=== PATIENT | male | born 1965 | race Caucasian/White ===

== ENCOUNTER → 2020-07-21 01:44 | Outpatient (CLI) | payer OTHER, SELFPAY ==
[2020-07-21 20:13] LABS: SARS-CoV-2 RNA PCR Negative
== END ==
PROVIDERS: PCP Internal Medicine; Visit Provider Internal Medicine Gastroenterology
DX: Z01.812 Encounter for preprocedural laboratory examination (principal); Z20.822 Contact with and (suspected) exposure to COVID-19
CPT/HCPCS: C9803; U0003; U0005

== ENCOUNTER 2020-07-24 01:28 | Day surgery (SDC) | payer OTHER, SELFPAY ==
[2020-07-10 13:32] VITALS: BMI 31.6
--- NOTE | 2020-07-23 09:55 | WPDANESEPPF ---
Anes - Initial Pre Proc Eval Procedure: Operation Date: 07/24/20 08:00 Proposed Procedures p Screening Colonoscopy - Jim Loera MD Date/Time: 07/23/20 09:55 Surgeon: Jim Loera MD Pre Op Diagnosis: neoplasm screening Patient Data Age: 54 Gender: M Height: 1.91 m Weight: 115 kg Allergies Allergy/AdvReac Type Severity Reaction Status Date / Time No Known Allergies Allergy Unknown Verified 07/24/20 06:48 Home Medications Medication Instructions Recorded Confirmed Type melatonin 5 mg tablet 5 mg PO ONCE PRN tablet 06/13/19 07/10/20 History hydrocodone 5 mg-acetaminophen 325 1 tablet PO Q6H PRN #28 tablet 06/26/19 07/10/20 Rx mg tablet fluticasone propionate 50 2 spray NASAL DAILY PRN #15.8 ml 12/11/19 07/10/20 Rx mcg/actuation nasal spray,suspension sildenafil (pulm.hypertension) 20 40 mg PO .COMPLEX #30 tablet 02/19/20 07/10/20 Rx mg tablet sod picosulf 10 mg-magnes 3.5 160 ml PO BID #160 ml 06/30/20 07/10/20 Rx gram-citric 12 gram/160 mL oral solution diclofenac sodium 75 mg PO DAILY 07/10/20 07/10/20 History Patient hx anesthesia problems: none Family hx anesthesia problems: none PMFSH Past Medical History Medical History (Updated 07/23/20 @ 09:59 by Alexander Nguyen MD) BMI 31.0-31.9,adult DVT (deep venous thrombosis) Other hyperlipidemia Family History Family History Mother Patient's mother is in good health Father Patient's father is in good health Social History Social History Smoking status: Never smoker Second hand tobacco smoke exposure: No Smoking end date: 04/25/88 Alcohol intake: current Drinks per week: 4 Alcohol use details: beer, vodka Substance use: current Substance use type: marijuana Living arrangements: with family Gender identity (if verbalized by the patient): Male Spiritual care concerns: No Anes - Eval Final PreProcedure Day of Procedure 07/23/20 09:55 Patient weight: obese Heart: regular rate and rhythm Lungs: clear to auscultation and normal air movement Airway: Mallampati scale class II Neurological: alert and oriented Last oral intake: >/= 8 hours ASA classification: II Emergent: no Anesthetic plan: proceed Anesthesia type and monitoring: general GIVS Informed Consent: The patient's anesthetic plan and its attendant risks and benefits were discussed with the patient/family/POA. Questions were solicited and answers provided to the satisfaction of the patient/family/POA.
[2020-07-24 06:50] VITALS: BP 132/93; PULSE 78; RESP 18; TEMP 35.9; O2SAT 100; BMI 30.5
[2020-07-24] MEDS: LACTATED RINGERS 1,000 ML 150 ML IV CONT (07:09)
--- NOTE | 2020-07-24 07:25 | PM.HPGS ---
History of Present Illness History of Present Illness Consent: Risks, benefits, and alternatives have been discussed and questions answered. Patient agrees to proceed with procedure. Chief complaint: neoplasm screening Narrative: Mehrdad England is a 54 year old male referred for colon cancer screen Review of Systems Review of Systems: All systems reviewed & are unremarkable except as noted in HPI and below PMFSH Past Medical History Medical History BMI 31.0-31.9,adult DVT (deep venous thrombosis) Other hyperlipidemia Family History Family History Mother Patient's mother is in good health Father Patient's father is in good health Social History Social History Smoking status: Never smoker Second hand tobacco smoke exposure: No Smoking end date: 04/25/88 Alcohol intake: current Drinks per week: 4 Alcohol use details: beer, vodka Substance use: current Substance use type: marijuana Living arrangements: with family Gender identity (if verbalized by the patient): Male Spiritual care concerns: No Meds Home Medications and Allergies Home Medications Medication Instructions Recorded Confirmed Type melatonin 5 mg tablet 5 mg PO ONCE PRN tablet 06/13/19 07/10/20 History hydrocodone 5 mg-acetaminophen 325 1 tablet PO Q6H PRN #28 tablet 06/26/19 07/10/20 Rx mg tablet fluticasone propionate 50 2 spray NASAL DAILY PRN #15.8 ml 12/11/19 07/10/20 Rx mcg/actuation nasal spray,suspension sildenafil (pulm.hypertension) 20 40 mg PO .COMPLEX #30 tablet 02/19/20 07/10/20 Rx mg tablet sod picosulf 10 mg-magnes 3.5 160 ml PO BID #160 ml 06/30/20 07/10/20 Rx gram-citric 12 gram/160 mL oral solution diclofenac sodium 75 mg PO DAILY 07/10/20 07/10/20 History Allergies Allergy/AdvReac Type Severity Reaction Status Date / Time No Known Allergies Allergy Unknown Verified 07/24/20 06:48 Vital Signs Vital Signs - 24 hr 07/24/20 06:50 Temperature 35.9 C L Pulse Rate 78 Respiratory Rate 18 Blood Pressure 132/93 H Pulse Oximetry 100 Exam Const: General: alert Orientation/consciousness: patient oriented x3 Resp: Auscultation: clear to auscultation bilaterally Cardio: Rhythm: regular rhythm GI: GI Palp: Yes Soft to palpation and No Tenderness to palpation present (GI) Neuro: General: patient oriented x3 Assessment and Plan Assessment and plan (1) Colon cancer screening: Code(s): Z12.11 - Encounter for screening for malignant neoplasm of colon Status: Acute Assessment and Plan: Colonoscopy with possible biopsy or polypectomy or cautery or injection of substances.
[2020-07-24 08:14] VITALS: BP 118/72; PULSE 62; RESP 17; O2SAT 98
[2020-07-24 08:24] VITALS: BP 108/70; PULSE 62; RESP 23; O2SAT 99
[2020-07-24 08:34] VITALS: BP 117/85; PULSE 55; RESP 22; O2SAT 97
== END 2020-07-24 08:46 | disposition home or self-care (01) ==
PROVIDERS: PCP Internal Medicine; Visit Provider Internal Medicine Gastroenterology
PROC: 0DJD8ZZ Inspection of Lower Intestinal Tract, Via Natural or Artificial Opening Endoscopic (ICD-10-PCS; CPT 45378; principal; 2020-07-24 08:00)
DX: Z12.11 Encounter for screening for malignant neoplasm of colon (principal); K57.30 Diverticulosis of large intestine without perforation or abscess without bleeding; K64.8 Other hemorrhoids; E78.5 Hyperlipidemia, unspecified; Z86.718 Personal history of other venous thrombosis and embolism; F12.90 Cannabis use, unspecified, uncomplicated; E66.9 Obesity, unspecified; Z68.30 Body mass index [BMI] 30.0-30.9, adult
CPT/HCPCS: 45378; C9803; J2704; J7120; U0003; U0005